=== PATIENT | female | born 1985 | race African-American/Black ===

== ENCOUNTER 2017-01-31 11:41 | Emergency (ER) | payer MEDICAID, OTHER ==
[~2017-01-31] VITALS: Ht 160 cm; Wt 150.0 kg
[2017-01-31] MEDS ORDERED: CARB200T6 PO (11:54)
[2017-01-31] MEDS ORDERED: MELO-106 PO (11:54)
[2017-01-31] MEDS ORDERED: IBUPROFEN 600MG TABLET PO STA (12:56)
[2017-01-31 14:11] VITALS: BP 106/54
== END 2017-01-31 14:13 | disposition home or self-care (01) ==
LOC: ER 11:54
DX: S80.02XA Contusion of left knee, initial encounter (principal); L03.116 Cellulitis of left lower limb; M19.90 Unspecified osteoarthritis, unspecified site; X58.XXXA Exposure to other specified factors, initial encounter; Y93.89 Activity, other specified; Y92.89 Other specified places as the place of occurrence of the external cause; Y99.8 Other external cause status
CPT/HCPCS: 73560; 81025; 99284

== ENCOUNTER 2021-12-08 10:31 | Emergency (ER) | payer OTHER ==
[~2021-12-08] VITALS: Ht 167.6 cm; Wt 110.0 kg
[~2021-12-08 10:31] MED LIST: CARB200T6 PO; MELO-106 PO
[2021-12-08] MEDS ORDERED: KETOROLAC 60MG/2ML VIAL IM ONE (14:00)
[2021-12-08 14:20] VITALS: BP 172/66
[2021-12-08 15:21] LABS: CLARITY URINE CLOUDY (CLEAR); COLOR URINE YELLOW (YELLOW); KETONES URINE NEGATIVE (NEGATIVE); LEUKOCYTE ESTERASE URINE NEGATIVE (NEGATIVE); NITRITE URINE NEGATIVE (NEGATIVE); OCCULT BLOOD URINE NEGATIVE (NEGATIVE); PROTEIN URINE NEGATIVE (NEGATIVE); SPECIFIC GRAVITY URINE 1.017 (1.005-1.030); UROBILINOGEN URINE 0.2 E.U./dL (0.2-1.0)
[2021-12-08] MEDS ORDERED: LIDO1ADH71 TOP (15:30)
[2021-12-08] MEDS ORDERED: ACET-2708 MT (15:30)
== END 2021-12-08 15:44 | disposition home or self-care (01) ==
LOC: ER 10:31
DX: M54.50 Low back pain, unspecified (principal)
CPT/HCPCS: 81003; 81025; 96372; 99283; J1885